=== PATIENT | male | born 1960 | race Caucasian/White ===

== ENCOUNTER 2019-07-30 18:55 | Emergency (ER) | payer OTHER ==
[~2019-07-30] VITALS: Ht 177.8 cm; Wt 104.3 kg
[2019-07-30 19:11] VITALS: BP_SYST 144
[2019-07-30 19:32] LABS: BASOPHILS # (AUTO) 0.1 K/uL (0.0-0.2); BASOPHILS % (AUTO) 0.8 % (0.0-2.0); EOSINOPHILS # (AUTO) 0.2 K/uL (0.0-0.4); EOSINOPHILS % (AUTO) 1.7 % (0.0-4.0); HEMATOCRIT 49.5 % (36-54); LYMPHOCYTES # (AUTO) 3.3 K/uL (1.0-5.5); LYMPHOCYTES % (AUTO) 34.8 % (20.5-51.5); MEAN CORPUSCULAR HEMOGLOBIN 31 pg (27-31); MEAN CORPUSCULAR HGB CONC 34 % (32-36); MEAN CORPUSCULAR VOLUME 91 fL (79.0-98.0); MONOCYTES # (AUTO) 0.9 K/uL (0.0-1.0); MONOCYTES % (AUTO) 9.3 % (1.7-9.3); NEUTROPHILS % (AUTO) 53.4 % (40.0-70.0); PLATELET COUNT (AUTO) 259 K/uL (130-430); RED BLOOD CELL COUNT(AUTO) 5.44 MIL/uL (4.2-6.2); RED CELL DISTRIBUTION WIDTH 13.8 % (9.0-15.0); WHITE BLOOD COUNT (AUTO) 9.4 K/uL (4.8-10.8)
[2019-07-30 19:58] LABS: CALCIUM 9.6 mg/dL (8.4-11.0); CREATININE 0.69 mg/dL (0.55-1.30); POTASSIUM 4.1 mmol/L (3.5-5.1)
--- NOTE | 2019-07-30 19:58 | NUR ---
BROUGHT IN BY EMS FOR ABDOMINAL PAIN,FOUL SMELLING,DARK URINE. PLACED IN BED 6. BLOOD DRAWN ALREADY EARLIER.
[2019-07-30 20:04] LABS: ALBUMIN 4.6 g/dL (3.4-4.8); TOTAL BILIRUBIN 0.8 mg/dL (0.0-1.0)
--- NOTE | 2019-07-30 20:30 | NUR ---
URINE SPECIMEN COLLECTED AND SENT TO THE LAB.
[2019-07-30 20:35] LABS: BILIRUBIN,URINE NEGATIVE (NEGATIVE); BLOOD, URINE NEGATIVE (NEGATIVE); CLARITY/URINE CLEAR (CLEAR); COLOR,URINE YELLOW (YELLOW); GLUCOSE,URINE 3+ (NEGATIVE); KETONES,URINE NEGATIVE (NEGATIVE); LEUKOCYTE ESTERASE ,URINE NEGATIVE (NEGATIVE); NITRITE, URINE NEGATIVE (NEGATIVE); PROTEIN URINE TRACE (NEGATIVE); UROBILINOGEN,URINE 0.2 (0.2-1.0)
--- NOTE | 2019-07-30 20:45 | NUR ---
ER-MD ACME BY BEDSIDE TO EVALUATE PT.
[2019-07-30] MEDS ORDERED: NACL 0.9% 1,000 ML IV ONE (21:00)
[2019-07-30] MEDS ORDERED: PANTOPRAZOLE SODIUM 40 MG/VIAL (PROTONIX) IVP ONE (21:00)
[2019-07-30 21:15] LABS: BACTERIA,URINE FEW /HPF (None Seen); RBC,URINE 0-3 /HPF (0-3); WBC,URINE 0-3 /HPF (0-3)
--- NOTE | 2019-07-30 21:28 | NUR ---
GAUGE 18 IV LINE ESTABLISHED TO THE LEFT WRIST. NS 1 LITER BOLUS AND PROTONIX 40 MG IVP GIVEN ORDERED.
--- NOTE | 2019-07-30 21:37 | NUR ---
WENT FOR CT SCAN OF ABDOMEN AND PELVIS [facility]IA [facility].
--- NOTE | 2019-07-30 21:59 | NUR ---
ER-MD BACK AT BEDSIDE TO RE-EVALUATE AND DISCUSS PLAN OF CARE WITH PT. PT. TO BE DISCHARGED TO HOME.
--- NOTE | 2019-07-30 22:32 | NUR ---
DISCHARGED STABLE AND IMPROVED. PRESCRIPTION,VERBAL AND WRITTEN AFTERCARE INSTRUCTIONS GIVEN. VERBALIZED UNDERSTANDING. LEFT AMBULATORY WITH STABLE GAIT.
[2019-07-30 22:53] VITALS: BP_SYST 138
== END 2019-07-30 22:53 | disposition home or self-care (01) ==
LOC: SED 18:55
DX: K29.70 Gastritis, unspecified, without bleeding (principal); E11.9 Type 2 diabetes mellitus without complications; Z88.5 Allergy status to narcotic agent
CPT/HCPCS: 36415; 74176; 80053; 81000; 83690; 85025; 96361; 96374; 99284; C9113; J7030

== ENCOUNTER 2019-07-31 19:20 | Emergency (ER) | payer OTHER ==
[~2019-07-31] VITALS: Ht 177.8 cm; Wt 104.3 kg
[2019-07-31 20:15] VITALS: BP_SYST 145
--- NOTE | 2019-07-31 21:18 | NUR ---
Called in x 3, no answer
--- NOTE | 2019-07-31 21:18 | NUR ---
Patient left without being seen. No further treatment provided. ER MD aware
== END 2019-07-31 21:18 | disposition left against medical advice (07) ==
LOC: SED 19:20
DX: R10.9 Unspecified abdominal pain (principal); Z53.21 Procedure and treatment not carried out due to patient leaving prior to being seen by health care provider